=== PATIENT | female | born 1980 | race Caucasian/White ===

== ENCOUNTER 2022-07-17 20:19 | Emergency (ER) | payer OTHER ==
[~2022-07-17] VITALS: Ht 175.3 cm; Wt 90.7 kg
--- OUTSIDE RECORDS SUMMARY | 2022-07-17 20:22 | XMS ---
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 [facility] VISIT COUNT (12 MO.) 1 DIONICIO Mccollum TOTAL 1 NOTE: Visits indicate total known visits. ED/UCC VISIT TRACKING (12 MO.) 07/17/2022 20:20 [facility] [place] TYPE: Emergency COMPLAINT: - RT ANKLE INJURY INPATIENT VISIT TRACKING (12 MO.) No inpatient visits to display in this time frame [id number]
[2022-07-17] MEDS ORDERED: VALIUM5 MG PO (20:45)
[2022-07-17] MEDS ORDERED: AMPHETAMINE SAL10 MG PO (20:45)
[2022-07-17] MEDS ORDERED: VYVANSE50 MG PO (20:45)
[2022-07-17] MEDS ORDERED: BUPROPION XL300 MG PO (20:46)
[2022-07-17] MEDS ORDERED: FLUOXETINE HCL60 MG PO (20:46)
[2022-07-17] MEDS ORDERED: ATORVASTATIN CA20 MG PO (20:46)
[2022-07-17] MEDS ORDERED: MELOXICAM15 MG PO (21:01)
== END 2022-07-17 21:26 | disposition home or self-care (01) ==
LOC: ED 20:19
DX: S93.401A Sprain of unspecified ligament of right ankle, initial encounter (principal); Z88.1 Allergy status to other antibiotic agents; X50.1XXA Overexertion from prolonged static or awkward postures, initial encounter
CPT/HCPCS: 73610; 96372; 99283-25; A9270; J1885

== ENCOUNTER 2022-09-15 14:13 | Emergency (ER) | payer OTHER ==
[~2022-09-15] VITALS: Ht 175.3 cm; Wt 97.5 kg
[~2022-09-15 14:13] MED LIST: AMPHETAMINE SAL10 MG PO; ATORVASTATIN CA20 MG PO; BUPROPION XL300 MG PO; FLUOXETINE HCL60 MG PO; MELOXICAM15 MG PO; VALIUM5 MG PO; VYVANSE50 MG PO
--- OUTSIDE RECORDS SUMMARY | 2022-09-15 14:16 | XMS ---
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 [facility] VISIT COUNT (12 MO.) 2 DIONICIO Mccollum TOTAL 2 NOTE: Visits indicate total known visits. ED/C VISIT TRACKING (12 MO.) 09/15/2022 14:14 [facility] TYPE: Emergency COMPLAINT: - HIGH HEART RATE 07/17/2022 20:20 [facility] [place] TYPE: Emergency COMPLAINT: - RT ANKLE INJURY DIAGNOSES: - Pain in right ankle and joints of right foot - Sprain of unspecified ligament of right ankle, initial encounter - Allergy status to other antibiotic agents - Overexertion from prolonged static or awkward postures, initial encounter INPATIENT VISIT TRACKING (12 MO.) No inpatient visits to display in this time frame [id number]
--- NOTE | 2022-09-16 21:24 | EKG ---
[facility] [address] [place] [address] Signed Sinus tachycardia Otherwise normal ECG No previous ECGs available Confirmed by Nelson Nixon MD () on 09/16/2022 9:24:07 PM Electronically Signed By: NELSON NIXON MD 09/16/222123 PATIENT NAME: LILLIE HILL ELISEO Electrocardiogram DATE OF : 82 PHYSICIAN: NELSON NIXON MD REPORT #: [id number] REPORT IS CONFIDENTIAL AND NOT TO BE RELEASED WITHOUT AUTHORIZATION
== END 2022-09-15 16:35 | disposition home or self-care (01) ==
LOC: ED 14:13
DX: R00.0 Tachycardia, unspecified (principal); Z88.1 Allergy status to other antibiotic agents; Z79.899 Other long term (current) drug therapy
CPT/HCPCS: 36415; 80053; 83735; 84436; 84443; 84484; 85025; 93005; 93010; 99285-25